=== PATIENT | female | born 1990 | race Caucasian/White ===

== ENCOUNTER 2018-05-23 15:06 | Outpatient (CLI) | payer BC | END 2018-05-23 15:07 | disposition home or self-care (01) | LOC: BICRAD 15:06 | PROVIDERS: ATTEND Podiatrist | DX: M79.671 Pain in right foot (principal) ==

== ENCOUNTER 2018-12-07 07:01 | Outpatient (CLI) | payer BC ==
--- NOTE | 2018-12-07 08:55 | ULT ---
RIGHT UPPER QUADRANT ABDOMINAL ULTRASOUND: HISTORY: Epigastric abdominal pain. COMPARISON: None. TECHNIQUE: Multiplanar og-scale and color Doppler images are obtained in a right upper quadrant abdominal ultr asound. FINDINGS: The liver is normal in echogenicity without focal lesions or intrahepatic ductal dilatation. The gal lbladder is normal without stones, sludge, gallbladder wall thickening, or pericholecystic fluid. Th e common bile duct is normal, measuring 3 mm. The visualized portions of the pancreas are unremarkable. The right kidney is normal in echogenicity without hydronephrosis or calculus and measures 11.1 cm in length. IMPRESSION: Unremarkable examination. POS: [facility]
== END 2018-12-07 07:02 | disposition home or self-care (01) ==
LOC: SCSULT 07:01
PROVIDERS: ATTEND Internal Medicine Gastroenterology
DX: K59.00 Constipation, unspecified (principal); R10.13 Epigastric pain; R63.5 Abnormal weight gain
CPT/HCPCS: 76705